=== PATIENT | male | born 1970 | race Caucasian/White ===

== ENCOUNTER 2019-01-08 00:15 | Emergency (ER) | payer MEDICAID ==
[~2019-01-08 00:15] MED LIST: Glucose Gel 15 GM in 37.5 GM Tube PO ONE
[2019-01-08] MEDS ORDERED: Glucose Gel 15 GM in 37.5 GM Tube PO ONE (00:16)
[2019-01-08] MEDS ORDERED: 50% Dextrose in Water 50 ML Syringe IVPUSH ONE ×2 (00:25→01:07)
[2019-01-08] MEDS: Sodium Chloride 0.9% 10 ML Syringe FLUSH PRN ×3 (00:25→02:16)
[2019-01-08 02:13] LABS: HEMOGLOBIN A1C 10.5 % (4.5-6.2)
--- NOTE | 2019-01-08 04:00 | EDM.PDOC ---
ED HPI GENERAL MEDICAL PROBLEM - General Chief Complaint: Diabetic Complaint Stated Complaint: SEIZURE Time Seen by Provider: 01/08/19 00:20 Source of Information: Reports: Other (friends - sales driver of car, and roommate by phone ) History Limitations: Reports: Altered Mental Status (initially ) - History of Present Illness INITIAL COMMENTS - FREE TEXT/NARRATIVE: brought in by friend, states that patient had become unresponsive in the car and noted some shaking activity. Generalized tonic-clonic activity noted by nursing. Patient known type I diabetic, was normal earlier in day, gave himself insulin at noon and 5pm per friend. Had a sandwich at some point in the day and supper around 5pm. Was at store with a different friend (the sales driver ) and saw him eat a candy bar about 10pm. They were heading home when patient became suddenly unresponsive, so he drove him here. No falls or injury. Had not been sick. - Related Data Allergies Allergy/AdvReac Type Severity Reaction Status Date / Time Penicillins Allergy Vomiting Verified 01/08/19 02:44 Home Meds: Home Meds .Insulin 1 dose SQ DAILY 01/09/19 [History] .Takes 3 Pills Qd 1 tab PO ASDIRECTED 01/09/19 [History] Past Medical History Endocrine/Metabolic History: Reports: Diabetes, Type I Social & Family History - Family History Family Medical History: Unobtainable - Tobacco Use Smoking Status *Q: Unknown Ever Smoked (smells of cigarettes) - Alcohol Use Alcohol Use Comment: unknown - Recreational Drug Use Recreational Drug Use: No Recreational Drug Use Comment: friends don't think so - Living Situation & Occupation Living situation: Reports: Other (lives with a couple friends. From [place]?) ED ROS GENERAL - Review of Systems Review Of Systems: Unable To Obtain ED EXAM GENERAL NO PERIP PULSE - Physical Exam Exam: See Below Text/Narrative:: Initial: somnalent, altered. Seizure activity stopped by the time I entered room. BG 25. No signs of head trauma. Pupils reactive, teeth in place. No neck bruising, abrasions or apparent tenderness. Lungs clear, heart regular. Can follow commands and squeeze both hands, push with both feet, strength equal side to side. Peripheral pulses +2 in both upper and lower extremities, no edema. Abdomen seems to be nontender with normal bowel sounds. No obvious skin lesions or wounds. At depart: pupils equal and reactive, mentation normal, normal gait, tolerated food, heart regular, lungs clear, abdomen nontender. Course - Vital Signs Text/Narrative:: seizure activity noted by nursing upon arrival, only known history is was fine earlier in the day, diabetic, no trauma per friend who was with him. Given some oral glucose in the cheek by nursing, initial BG 25. Access rapidly obtained and pushed 1amp D50. Patient awoke and was talking with us, though a bit slow. No s/s of stroke. States he's fine, but his sugars went low. Denies hx of seizures. Glu now 100. will check glu q15 min, additional 1/2 amp to be given if sugars drop again. obtain labs and head CT. Last Recorded V/S: Last Vital Signs Temp 36.3 C 01/08/19 02:45 Pulse 106 H 01/09/19 02:15 Resp 20 01/09/19 02:15 BP 169/89 H 01/09/19 02:15 Pulse Ox 100 01/09/19 02:15 - Orders/Labs/Meds Labs: Laboratory Tests 01/08/19 01/08/19 01/08/19 Range/Units 01:51 01:51 01:51 WBC 20.5 H (4.5-12.0) X10-3/uL RBC 4.47 (4.30-5.75) x10(6)uL Hgb 14.6 (13.5-17.8) g/dL Hct 41.8 (30.0-51.3) % MCV 93.4 (80-96) fL MCH 32.6 (27.7-33.6) pg MCHC 34.9 (32.2-35.4) g/dL RDW 14.0 (11.5-15.5) % Plt Count 364 (125-369) X10(3)uL MPV 7.9 (7.4-10.4) fL Add Manual Diff Yes Neutrophils % (Manual) 75 (46-82) % Band Neutrophils % 4 (0-6) % Lymphocytes % (Manual) 15 (13-37) % Monocytes % (Manual) 5 (4-12) % Eosinophils % (Manual) 1 (0-5) % Sodium 142 (135-145) mmol/L Potassium 3.8 (3.5-5.3) mmol/L Chloride 104 (100-110) mmol/L Carbon Dioxide 33 H (21-32) mmol/L BUN 21 H (7-18) mg/dL Creatinine 1.6 H (0.70-1.30) mg/dL Est Cr Clr Drug Dosing TNP Estimated GFR (MDRD) 46 L (>60) BUN/Creatinine Ratio 13.1 (9-20) Glucose 95 (80-116) mg/dL Hemoglobin A1c (4.5-6.2) % Lactic Acid 1.4 (0.4-2.2) mmol/L Calcium 9.0 (8.6-10.2) mg/dL C-Reactive Protein (0.5-0.9) mg/dL 01/08/19 01/08/19 Range/Units 01:51 01:51 WBC (4.5-12.0) X10-3/uL RBC (4.30-5.75) x10(6)uL Hgb (13.5-17.8) g/dL Hct (30.0-51.3) % MCV (80-96) fL MCH (27.7-33.6) pg MCHC (32.2-35.4) g/dL RDW (11.5-15.5) % Plt Count (125-369) X10(3)uL MPV (7.4-10.4) fL Add Manual Diff Neutrophils % (Manual) (46-82) % Band Neutrophils % (0-6) % Lymphocytes % (Manual) (13-37) % Monocytes % (Manual) (4-12) % Eosinophils % (Manual) (0-5) % Sodium (135-145) mmol/L Potassium (3.5-5.3) mmol/L Chloride (100-110) mmol/L Carbon Dioxide (21-32) mmol/L BUN (7-18) mg/dL Creatinine (0.70-1.30) mg/dL Est Cr Clr Drug Dosing Estimated GFR (MDRD) (>60) BUN/Creatinine Ratio (9-20) Glucose (80-116) mg/dL Hemoglobin A1c 10.5 H (4.5-6.2) % Lactic Acid (0.4-2.2) mmol/L Calcium (8.6-10.2) mg/dL C-Reactive Protein 1.0 H (0.5-0.9) mg/dL Meds: Medications Discontinued Medications Generic Name Dose Route Start Last Admin Trade Name Zeina PRN Reason Stop Dose Admin Dextrose 15 gm 01/08/19 00:15 01/08/19 00:15 Glutose 15 PO 01/08/19 00:16 15 gm ONETIME ONE Administration Dextrose 15 gm 01/08/19 00:16 01/08/19 00:16 Glutose 15 PO 01/08/19 00:17 15 gm ONETIME ONE Administration Dextrose/Water 50 ml 01/08/19 00:25 01/08/19 00:25 Dextrose 50% In Water IVPUSH 01/08/19 00:26 50 ml ONETIME ONE Administration Dextrose/Water 25 ml 01/08/19 01:07 01/08/19 01:07 Dextrose 50% In Water IVPUSH 01/08/19 01:08 25 ml ONETIME ONE Administration Sodium Chloride 10 ml 01/08/19 00:15 01/08/19 01:07 Saline Flush FLUSH 10 ml ASDIRECTED PRN Administration keep vein open - Re-Assessments/Exams Free Text/Narrative Re-Assessment/Exam: no bleed, mass lesions or midline shift seen on head CT. Patient improving, although has required additional IV glucose. he reports he takes lantus 18 units in AM and PM, and novolog 70/30 with meals. Had 7 units at lunch with pizza, 7 more at 5pm with a sandwich. Was running high so gave himself another 7 units at 8pm for glucose 349. Uncertain last A1c, states "its been a while". 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 Moves between [facility] and [place], plans to establish with Dr. Menendez. Tries to keep a goal BG of 150 but admits he isn't very good about checking regularly, just does his lantus in the AM and 7 units with meals. Can't explain why he was high this evening. Free Text/Narrative Re-Assessment/Exam: labs returned, WBC high but could be from stress of low, CRP just above normal, elevated creatinine. A1c obtained and is 10. Patient now with normal mentation , very chatty, instructed to eat something as his sugars still dipping although within normal range. Per the timing he gave me last dose of novolog should be peaking. Free Text/Narrative Re-Assessment/Exam: stable, mentation normal, would like to go home. Tolerated food, has been up and walking around. he now admits to me he had a few beers earlier in the evening, which is why his sugar was high, and he gave himself extra novolog to try and bring it down. Per the notes he wrote me over the last week he is fairly consistent with the 5- 7 unites novolog at mealtimes and lantus 18 am and PM, less consistent with checking sugars, but has not had any other lows. Given discharge instructions regarding corrective insulin dosing and being sure to wait until Novolog has taken effect before dosing again. Discussed seizure precautions and not driving for 3 months. He is in agreement and all questions answered. Departure - Departure Time of Disposition: 03:59 Disposition: Home, Self-Care 01 Condition: Good Clinical Impression: Hypoglycemia - Discharge Information *PRESCRIPTION DRUG MONITORING PROGRAM REVIEWED*: Not Applicable *COPY OF PRESCRIPTION DRUG MONITORING REPORT IN PATIENT INES: Not Applicable Instructions: Hypoglycemia Referrals: Carlos A Monsalve MD [Primary Care Provider] - Forms: ED Department Discharge Additional Instructions: hand-written for patient continue insulin as per prescribed instructions, however, if you give yourself an additional correction dose because you are high, you should wait 6 hours to see its effect before trying to give additional correction, until can discuss appropriate sliding scale with your medical doctor.
== END 2019-01-08 04:05 | disposition home or self-care (01) ==
LOC: FB.ED 00:15
DX: E10.649 Type 1 diabetes mellitus with hypoglycemia without coma (principal); G40.409 Other generalized epilepsy and epileptic syndromes, not intractable, without status epilepticus; Z88.0 Allergy status to penicillin
CPT/HCPCS: 36415; 70450; 80048; 82962; 83036; 83605; 85025; 86140; 96374; 96376; 99284; A4216; A9270

== ENCOUNTER 2019-05-27 15:12 | Emergency (ER) | payer MEDICAID ==
[2019-05-27] MEDS ORDERED: Sodium Chloride 0.9% 10 ML Syringe FLUSH PRN (15:33)
--- NOTE | 2019-05-27 15:33 | EDM.PDOC ---
ED HPI GENERAL MEDICAL PROBLEM - General Stated Complaint: DKA FROM WALK IN Time Seen by Provider: 05/27/19 15:30 Source of Information: Reports: Patient History Limitations: Reports: No Limitations - History of Present Illness INITIAL COMMENTS - FREE TEXT/NARRATIVE: 49-year-old male who reports that 3 days ago he began to just "not feel well" and he had a poor appetite and felt like laying in bed all the time. The following day he began having vomiting and since that time he has had persisting vomiting and epigastric abdominal discomfort associated with feeling weak all over and tired. He has been unable to eat or drink. His blood sugars have been elevated and he has not been taking his medications. The pain in his abdomen is in the epigastric region and it seems to come and go. It was an 8/10 at its worst and was sharp and boring. He has had vomiting 7 today. He does report urination with no dysuria or hematuria but he has had decreased urine output. No chest pain. No arm or leg pain. Subjective fever. He was initially seen in the walk-in clinic and found to have a blood sugar in the 800 range and had ketotic breath. He was transferred over here for further evaluation and treatment. His emesis had been what he had been drinking and somewhat bilious at times but there was a "red emesis" here in the emergency department. There are no other associated signs or symptoms. There are no other modifying factors. 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: Other (see below) (Nothing) - Related Data Allergies Allergy/AdvReac Type Severity Reaction Status Date / Time Penicillins Allergy Vomiting Verified 01/08/19 02:44 Home Meds: Home Meds Insulin Aspart [NovoLOG] 0 unit SQ ASDIRECTED 05/27/19 [History] Insulin Glarg,Human.Rec.Analog [Lantus Solostar] 0 unit SUBCUT ASDIRECTED [History] Quinapril HCl [Accupril] 40 mg PO DAILY 05/27/19 [History] amLODIPine Besylate [Amlodipine Besylate] 10 mg PO DAILY 05/27/19 [History] atorvaSTATin Calcium [Atorvastatin Calcium] 80 mg PO DAILY 05/27/19 [History] Past Medical History Cardiovascular History: Reports: High Cholesterol, Hypertension Endocrine/Metabolic History: Reports: Diabetes, Type I - Past Surgical History Musculoskeletal Surgical History: Reports: Other (See Below) (Trigger finger surgery) Dermatological Surgical History: Reports: Other (See Below) (Pilonidal cystectomy) Social & Family History - Tobacco Use Smoking Status *Q: Current Every Day Smoker - Alcohol Use Alcohol Use History: No - Living Situation & Occupation Living situation: Reports: Other (lives with a couple friends. From [place]?) Occupation: Disabled ED ROS GENERAL - Review of Systems Review Of Systems: See Below Constitutional: Reports: Fever (Objective), Weakness, Fatigue, Decreased Appetite HEENT: Reports: Other (Very dry mouth) Respiratory: Reports: Shortness of Breath (Feels somewhat short of breath) Cardiovascular: Reports: Lightheadedness Endocrine: Reports: High Glucose GI/Abdominal: Reports: Abdominal Pain, Nausea, Vomiting : Reports: Other (Decreased urine output). Denies: Dysuria, Hematuria, Pain, Urgency Musculoskeletal: Reports: Other (Aching all over) Skin: Reports: No Symptoms Neurological: Reports: Weakness Hematologic/Lymphatic: Reports: No Symptoms Immunologic: Reports: No Symptoms ED EXAM GENERAL NO PERIP PULSE - Physical Exam Exam: See Below Exam Limited By: No Limitations General Appearance: Alert, WD/WN, Moderate Distress Eye Exam: Bilateral Eye: EOMI, Normal Inspection, PERRL Ears: Normal External Exam, Hearing Grossly Normal Nose: Normal Inspection, Normal Mucosa Throat/Mouth: Normal Voice, No Airway Compromise, Other (Drymouthed) Head: Atraumatic, Normocephalic Neck: Normal Inspection, Supple, Non-Tender, Full Range of Motion Respiratory/Chest: Lungs Clear, Normal Breath Sounds, No Accessory Muscle Use, Chest Non-Tender, Other (Increased respiratory rate) Cardiovascular: Normal Peripheral Pulses, No JVD, No Murmur, Tachycardia GI/Abdominal: Soft, No Mass, Tender (In epigastrium), Abnormal Bowel Sounds ( Also somewhat diminished) Back Exam: Normal Inspection, Full Range of Motion Extremities: Normal Inspection, Normal Range of Motion, Non-Tender, No Pedal Edema, Normal Capillary Refill Neurological: Alert, Oriented, CN II-XII Intact, Normal Cognition, No Motor/ Sensory Deficits Skin Exam: Warm, Dry, Intact, Normal Color, No Rash Lymphatic: No Adenopathy EKG INTERPRETATION EKG Date: 05/27/19 Time: 15:54 Rhythm: Other (Sinus tachycardia) Rate (Beats/Min): 124 [place]: RAD-Right [place] Deviation P-Wave: Present QRS: Normal ST-T: Normal QT: Normal Comparison: NA - No Prior EKG Course - Vital Signs Last Recorded V/S: Last Vital Signs Temp 36.5 C 05/27/19 18:45 Pulse 114 H 05/27/19 18:45 Resp 20 05/27/19 18:45 BP 139/72 05/27/19 18:45 Pulse Ox 97 05/27/19 18:45 - Orders/Labs/Meds Orders: Active Orders 24 hr Category Date Time Status EKG Documentation Completion [RC] ASDIRECTED Care 05/27/19 15:36 Active Chest 1V Frontal [CR] Stat Exams 05/27/19 15:33 Taken Peripheral IV Insertion Adult [OM.PC] Routine Oth 05/27/19 15:33 Ordered EKG 12 Lead [EK] Routine Ther 05/27/19 15:36 Ordered Labs: Laboratory Tests 05/27/19 05/27/19 05/27/19 Range/Units 15:50 15:50 15:50 POC VBG pH (7.31-7.41) POC VBG pCO2 (41-51) mmHG POC VBG HCO3 (23-28) mmol/L POC VBG Total CO2 (24-29) mmol/L POC VBG Base Excess (-2-3) mmol/L POC Glucose (80-116) mg/dL Lactic Acid 2.3 H (0.4-2.2) mmol/L Magnesium 2.4 (1.8-2.5) mg/dL Troponin I (<0.017-0.056) ng/mL Lipase 283 (73-393) U/L Urine Color (YELLOW) Urine Appearance (CLEAR) Urine pH (5.0-6.5) Ur Specific [place] (1.010-1.025) Urine Protein (NEGATIVE) mg/dL Urine Glucose (UA) (NORMAL) mg/dL Urine Ketones (NEGATIVE) mg/dL Urine Occult Blood (NEGATIVE) Urine Nitrite (NEGATIVE) Urine Bilirubin (NEGATIVE) Urine Urobilinogen (NEGATIVE) mg/dL Ur Leukocyte Esterase (NEGATIVE) Urine RBC (0-5) Urine WBC (0-5) Ur Squamous Epith Cells (NS,R,O) Urine Bacteria (NS) 05/27/19 05/27/19 05/27/19 Range/Units 15:50 15:59 16:32 POC VBG pH 7.27 L (7.31-7.41) POC VBG pCO2 27.1 L (41-51) mmHG POC VBG HCO3 12.3 L (23-28) mmol/L POC VBG Total CO2 13 L (24-29) mmol/L POC VBG Base Excess -14 L (-2-3) mmol/L POC Glucose > 500 H* D (80-116) mg/dL Lactic Acid (0.4-2.2) mmol/L Magnesium (1.8-2.5) mg/dL Troponin I < 0.017 L (<0.017-0.056) ng/mL Lipase (73-393) U/L Urine Color (YELLOW) Urine Appearance (CLEAR) Urine pH (5.0-6.5) Ur Specific [place] (1.010-1.025) Urine Protein (NEGATIVE) mg/dL Urine Glucose (UA) (NORMAL) mg/dL Urine Ketones (NEGATIVE) mg/dL Urine Occult Blood (NEGATIVE) Urine Nitrite (NEGATIVE) Urine Bilirubin (NEGATIVE) Urine Urobilinogen (NEGATIVE) mg/dL Ur Leukocyte Esterase (NEGATIVE) Urine RBC (0-5) Urine WBC (0-5) Ur Squamous Epith Cells (NS,R,O) Urine Bacteria (NS) 05/27/19 05/27/19 Range/Units 16:33 18:26 POC VBG pH (7.31-7.41) POC VBG pCO2 (41-51) mmHG POC VBG HCO3 (23-28) mmol/L POC VBG Total CO2 (24-29) mmol/L POC VBG Base Excess (-2-3) mmol/L POC Glucose > 500 H* (80-116) mg/dL Lactic Acid (0.4-2.2) mmol/L Magnesium (1.8-2.5) mg/dL Troponin I (<0.017-0.056) ng/mL Lipase (73-393) U/L Urine Color Yellow (YELLOW) Urine Appearance Clear (CLEAR) Urine pH 5.0 (5.0-6.5) Ur Specific [place] 1.010 (1.010-1.025) Urine Protein 100 H (NEGATIVE) mg/dL Urine Glucose (UA) >1000 H (NORMAL) mg/dL Urine Ketones 50 H (NEGATIVE) mg/dL Urine Occult Blood Negative (NEGATIVE) Urine Nitrite Negative (NEGATIVE) Urine Bilirubin Negative (NEGATIVE) Urine Urobilinogen Normal (NEGATIVE) mg/dL Ur Leukocyte Esterase Negative (NEGATIVE) Urine RBC Not seen (0-5) Urine WBC 0-5 (0-5) Ur Squamous Epith Cells Rare (NS,R,O) Urine Bacteria Rare H (NS) Meds: Medications Discontinued Medications Generic Name Dose Route Start Last Admin Trade Name Freq PRN Reason Stop Dose Admin Sodium Chloride 1,000 mls @ 999 mls/hr 05/27/19 15:35 05/27/19 16:00 Normal Saline IV 05/27/19 16:35 999 mls/hr .BOLUS ONE Administration Sodium Chloride 1,000 mls @ 150 mls/hr 05/27/19 15:45 05/27/19 17:01 Normal Saline IV 150 mls/hr ASDIRECTED PATRICK Administration Insulin Human Regular 100 unit 100 mls @ 7.48 mls/hr 05/27/19 18:00 05/27/19 18:37 / Sodium Chloride IV 0.1 units/kg/hr TITRATE PATRICK 7.48 mls/hr Administration Protocol 0.1 UNITS/KG/HR Sodium Chloride 1,000 mls @ 999 mls/hr 05/27/19 17:58 05/27/19 18:42 Normal Saline IV 05/27/19 18:58 999 mls/hr .BOLUS ONE Administration Insulin Human Regular 20 unit 05/27/19 15:35 05/27/19 16:00 Humulin R IV 05/27/19 15:36 20 unit ONETIME ONE Administration Pantoprazole Sodium 40 mg 05/27/19 16:25 05/27/19 16:30 Protonix Iv IVPUSH 05/27/19 16:26 40 mg ONETIME ONE Administration Sodium Chloride 10 ml 05/27/19 15:33 05/27/19 16:00 Saline Flush FLUSH 10 ml ASDIRECTED PRN Administration Keep Vein Open - Radiology Interpretation Free Text/Narrative:: Chest x-ray shows no acute disease. - Re-Assessments/Exams Free Text/Narrative Re-Assessment/Exam: 05/27/19 16:15: The patient had another episode of emesis that was "red". There is no gastroccult available to check for blood. I will order for Protonix to be given IV. I will continue IV fluid hydration. The patient was also given insulin 20 units regular IV. We will continue to monitor the patient closely. Antiemetics were given as well. 05/27/19 17:00: Initial call was made to [facility] in [place] and there are multiple people that are being transferred and I was asked to call back about this patient. 05/27/19 17:45: I can call made to [facility] in [place]. The patient remains stable with pulse in the 120 range and blood pressure 130/70. I am awaiting [facility]'s call back. 05/27/19 18:00: I discussed the patient's case with , hospitalist at [facility] and Dr. Lizarraga, digital computer systems analyst at [facility] and they recommended that the patient get more IV normal saline as a bolus and that the patient be placed on an insulin drip at 0.1 units per kilogram per hour and they would accept the patient in transfer. The patient will be transferred via ambulance to [facility] for direct admission. Departure - Departure Time of Disposition: 18:53 Disposition: DC/Tfer to Acute Hospital 02 Condition: Critical Clinical Impression: Acute kidney injury, Upper GI hemorrhage Diabetic ketoacidosis Qualifiers: Diabetes mellitus type: type 1 Diabetes mellitus complication detail: without coma Qualified Code(s): E10.10 - Type 1 diabetes mellitus with ketoacidosis without coma - Discharge Information Referrals: Carlos A Monsalve MD [Primary Care Provider] - Forms: ED Department Discharge Critical Care Note - Critical Care Note Total Time (mins): 95 Comments: Total critical care time spent with the patient was 95 minutes. - My Orders Last 24 Hours: My Active Orders 05/27/19 15:33 Chest 1V Frontal [CR] Stat Peripheral IV Insertion Adult [OM.PC] Routine 05/27/19 15:36 EKG Documentation Completion [RC] ASDIRECTED EKG 12 Lead [EK] Routine - Assessment/Plan Last 24 Hours: My Active Orders 05/27/19 15:33 Chest 1V Frontal [CR] Stat Peripheral IV Insertion Adult [OM.PC] Routine 05/27/19 15:36 EKG Documentation Completion [RC] ASDIRECTED EKG 12 Lead [EK] Routine
[2019-05-27] MEDS ORDERED: Sodium Chloride 0.9% 1,000 ML IV ONE ×2 (15:35→17:58)
[2019-05-27] MEDS ORDERED: Insulin Regular, Human 100 Units/ML 3 ML Vial IV ONE (15:35)
[2019-05-27] MEDS ORDERED: Sodium Chloride 0.9% 1,000 ML IV SCH (15:45)
[2019-05-27] MEDS ORDERED: Pantoprazole 40 MG Vial IVPUSH ONE (16:25)
== END 2019-05-27 18:53 ==
LOC: FB.ED 15:12
DX: N17.9 Acute kidney failure, unspecified (principal); K92.2 Gastrointestinal hemorrhage, unspecified; E10.10 Type 1 diabetes mellitus with ketoacidosis without coma; I10 Essential (primary) hypertension; E78.5 Hyperlipidemia, unspecified; F17.200 Nicotine dependence, unspecified, uncomplicated; Z88.0 Allergy status to penicillin; Z79.899 Other long term (current) drug therapy; Z79.4 Long term (current) use of insulin
CPT/HCPCS: 36415; 71045; 81001; 82803; 82962; 83605; 83690; 83735; 84484; 93005; 96361; 96365; 96375; 96376; 99285; C9113; J1815; J7030